=== PATIENT | female | born 1990 | race Caucasian/White ===

== ENCOUNTER 2020-04-11 03:25 | Emergency (ER) | payer OTHER ==
--- NOTE | 2020-04-11 03:55 | ER Document Report ---
ED General - General Chief Complaint: Shoulder Pain Stated Complaint: CHEST PAIN RADIATING TO SHOULDER Time Seen by Provider: 04/11/20 03:47 Primary Care Provider: CHARY ARROYO [Primary Care Provider] - Follow up as needed Mode of Arrival: Medic Information source: Patient Notes: Otherwise healthy 29-year-old female presents emergency department with left- sided chest pain that radiates down into her left arm that started this morning at 2 AM. She reports associated cold sweats, nausea. She denies any vomiting. She does not have any cardiac history. She takes no medications. She was given 325 mg of aspirin and 2 sprays of sublingual nitroglycerin by EMS. She does report that the chest pain improved but she is not sure if it was associated with the nitroglycerin or not. She has never had chest pain before. - Related Data Allergies/Adverse Reactions: No Known Allergies Allergy (Unverified 04/11/20 04:44) Past Medical History - General Information source: Patient - Social History Smoking Status: Never Smoker Frequency of alcohol use: None Drug Abuse: None Family History: None - Medical History Medical History: Negative Surgical Hx: Negative - Immunizations Immunizations up to date: Yes Review of Systems - Review of Systems EENT: No symptoms reported Cardiovascular: Chest pain Respiratory: No symptoms reported Gastrointestinal: Nausea Genitourinary: No symptoms reported Female Genitourinary: No symptoms reported Musculoskeletal: No symptoms reported Skin: No symptoms reported Hematologic/Lymphatic: No symptoms reported Neurological/Psychological: No symptoms reported -: Yes All other systems reviewed and negative Physical Exam - Vital signs Vitals: Resp BP Pulse Ox 16 114/73 99 04/11/20 04:13 04/11/20 04:13 04/11/20 04:13 - Notes Notes: PHYSICAL EXAMINATION: GENERAL: Well-appearing, well-nourished and in no acute distress. HEAD: Atraumatic, normocephalic. EYES: Pupils equal round and reactive to light, extraocular movements intact, conjunctiva are normal. ENT: Nares patent, oropharynx clear without exudates. Moist mucous membranes. NECK: Normal range of motion, supple without lymphadenopathy LUNGS: Breath sounds clear to auscultation bilaterally and equal. No wheezes rales or rhonchi. HEART: Regular rate and rhythm without murmurs ABDOMEN: Soft, nontender, nondistended abdomen. No guarding, no rebound. No masses appreciated. Female : deferred Musculoskeletal: Normal range of motion, no pitting or edema. No cyanosis. NEUROLOGICAL: Cranial nerves grossly intact. Normal speech, normal gait. Normal sensory, motor exams PSYCH: Normal mood, normal affect. SKIN: Warm, Dry, normal turgor, no rashes or lesions noted. Course - Re-evaluation Re-evalutation: Patient's work-up today has been reassuring. Patient has been chest pain-free since arrival. Initial EKG showed a sinus rhythm, rate of 74, normal axis, normal intervals, QTC 418. No obvious ST segment elevations or depressions to suggest ischemia. No previous EKG on file to compare to. Initial troponin was negative. Unfortunately nursing staff dorota the second troponin too soon. Repeat troponin was drawn at 0800, this was 6 hours from the onset of chest pain. This was negative. She will be discharged home. I did give her the follow-up information for a stretching machine tender frame in case her chest pain comes back or persist. She was encouraged to return to the emergency department for any severe chest pains. - Vital Signs Vital signs: Temp Pulse Resp BP Pulse Ox 16 106/72 100 04/11/20 07:00 04/11/20 07:00 04/11/20 07:00 - Laboratory Result Diagrams: 04/11/20 04:00 04/11/20 04:00 Laboratory results interpreted by me: 04/11/20 04/11/20 04:00 04:00 Hgb 11.9 L Hct 35.2 L Chloride 108 H Discharge - Discharge Clinical Impression: Non-cardiac chest pain Condition: Stable Disposition: HOME, SELF-CARE Additional Instructions: Chest Pain of Unclear Cause The exact cause of your chest pain isn't clear. Fortunately, there is no evidence of a dangerous medical condition. Further testing may be required to find the source of the pain. Most often, we find that this pain is coming from the chest wall -- the muscles or rib joints in the chest. But chest pain can come from the lung and lung lining, the esophagus, the heart valves or heart lining, and even the stomach or gallbladder. Rest. Eat lightly until the pain is gone. We may prescribe medicine for pain and inflammation. You should call the physician immediately if the pain radiates to the shoulder, jaw or arms; if you start to run a fever or develop a cough; or if you develop shortness of breath, or other new or alarming symptoms. Your work-up today was reassuring. Your chest x-ray, EKG and blood work were normal. There was no suggestion that this pain was cardiac in nature. Please follow the above directions. Like we discussed the pain may be from stress or anxiety. If your chest pain worsens or persists please consider following up with a stretching machine tender frame for further work-up. If the pain is severe as outlined above return to the emergency department. Forms: Return to Work Referrals: SCOTTIE CANELA MD [ACTIVE STAFF] - Follow up as needed
[2020-04-11 04:19] LABS: ABSOLUTE BASOPHILS # (AUTO) 0.1 10^3/uL (0.0-0.2); ABSOLUTE EOSINOPHILS # (AUTO) 0.3 10^3/uL (0.0-0.6); ABSOLUTE LYMPHOCYTES (AUTO) 2.3 10^3/uL (0.5-4.7); ABSOLUTE MONOCYTES (AUTO) 0.6 10^3/uL (0.1-1.4); ABSOLUTE NEUT (AUTO) 5.2 10^3/uL (1.7-8.2); EOSINOPHILS % (AUTO) 4.1 % (0-6); HEMATOCRIT 35.2 % (36.0-47.0); HEMOGLOBIN 11.9 g/dL (12.0-15.5); LYMPHOCYTES % (AUTO) 26.9 % (13-45); MEAN CORPUSCULAR HEMOGLOBIN 27.6 pg (27.0-33.4); MEAN CORPUSCULAR HGB CONC 33.9 g/dL (32.0-36.0); MEAN CORPUSCULAR VOLUME 82 fl (80-97); MONOCYTES % (AUTO) 6.9 % (3-13); PLATELET COUNT 288 10^3/uL (150-450); RED BLOOD COUNT 4.32 10^6/uL (3.72-5.28); RED CELL DISTRIBUTION WIDTH 13.9 % (11.5-14.0); SEGMENTED NEUTROPHILS % (AUTO) 61.1 % (42-78); TOTAL CELLS COUNTED % (AUTO) 100 %; WHITE BLOOD COUNT 8.5 10^3/uL (4.0-10.5)
[2020-04-11 04:42] LABS: ALBUMIN 3.8 g/dL (3.5-5.0); ALKALINE PHOSPHATASE 44 U/L (38-126); ANION GAP 7 (5-19); ASPARTATE AMINO TRANSFERASE 24 U/L (14-36); BILIRUBIN,DIRECT 0.1 mg/dL (0.0-0.4); BILIRUBIN,TOTAL 0.6 mg/dL (0.2-1.3); BLOOD UREA NITROGEN 10 mg/dL (7-20); CALCIUM 8.8 mg/dL (8.4-10.2); CARBON DIOXIDE 23 mmol/L (22-30); CHLORIDE 108 mmol/L (98-107); GLUCOSE 97 mg/dL (75-110); POTASSIUM 3.9 mmol/L (3.6-5.0); TOTAL PROTEIN 6.7 g/dL (6.3-8.2)
--- NOTE | 2020-04-11 04:53 | RADIOLOGY REPORT (SQ) ---
CHEST X-RAY 1 VIEW on 04/11/2020 at 4:05 AM CLINICAL INDICATION: Chest pain COMPARISON: None FINDINGS: The lungs are clear. Cardiac, hilar and mediastinal contours are within normal limits. Pulmonary vascularity is within normal limits. No bony abnormality is noted. IMPRESSION: No active disease.
[2020-04-11 09:18] VITALS: BP 122/66
--- NOTE | 2020-04-11 18:17 | EKG REPORT ---
SEVERITY:- OTHERWISE NORMAL ECG - SINUS ARRHYTHMIA, RATE 61-85 : Confirmed by: Tanner Reich 11-Apr-2020 18:16:58
== END 2020-04-11 09:16 | disposition home or self-care (01) ==
LOC: ER 03:25
DX: R07.89 Other chest pain (principal); R61 Generalized hyperhidrosis; R11.0 Nausea
CPT/HCPCS: 36415; 71045; 80053; 84484; 84703; 85025; 93005; 93010; 99285